=== PATIENT | female | born 1960 | race African-American/Black ===

== ENCOUNTER → 2025-01-05 | Outpatient (REF) | payer OTHER ==
[~2025-01-05] MED LIST: METOPROLOL TARTRATE INJ 1 MG/ML VIAL ONE; NITROGLYCERIN 0.4 MG SUBL ONE
[2025-01-05 10:43] LABS: EST GLOMERULAR FILTRATION RATE 99.0 ML/MIN (>=60)
== END ==
LOC: CT 09:33
PROVIDERS: ATTEND Internal Medicine Cardiovascular Disease
DX: R07.2 Precordial pain (principal)
CPT/HCPCS: 36415; 75574; 82565; 84520